=== PATIENT | male | born 1990 | race Two or more races ===

== ENCOUNTER 2018-04-03 16:48 | Inpatient (IN) | payer OTHER ==
[2018-04-03 17:09] VITALS: BMI 39.4
--- NOTE | 2018-04-03 19:34 | HP ---
COWS - Scale Resting Pulse: 1= [place] 81-100 Sweatin=Flushed/Facial Moisture Restless Observation: 1= Difficult to Sit Still Pupil Size: 2= Moderately Dilated (Pupils = 8 mm) Bone or Joint Aches: 2= Severe Diffuse Aches Runny Nose/ Eye Tearin= Nasal Congestion GI Upset > 30mins: 2= Nausea/Diarrhea (No diarrhea) Tremor Observation: 4= Gross Tremor/Twitching Yawning Observation: 0= None Anxiety or Irritability: 1=Feels Anxious/Irritable Goose Flesh Skin: 0=Smooth Skin COWS Score: 16 CIWA Score Nausea/Vomitin-Int. Nausea w/Dry Heave Muscle Tremors: 6 Anxiety: 1-Mildly Anxious Agitation: 1-Slight > Activity Paroxysmal Sweats: 4-Forehead w/Sweat Beads Orientation: 0-Oriented Tacttile Disturbances: 0-None Auditory Disturbances: 0-None Visual Disturbances: 2-Mild Sensitivity (Increased sensitivity to light) Headache: 3-Moderate CIWA-Ar Total Score: 21 - Admission Criteria [facility]ASAS Guidelines: Admission for Medically Managed Detox: Requires at least one of the followin. CIWA greater than 12 2. Seizures within the past 24 hours 3. Delirium tremens within the past 24 hours 4. Hallucinations within the past 24 hours 5. Acute intervention needed for co occurring medical disorder 6. Acute intervention needed for co occurring psychiatric disorder 7. Severe withdrawal that cannot be handled at a lower level of care (continued vomiting, continued diarrhea, abnormal vital signs) requiring intravenous medication and/or fluids 8. Patient presents the following: CIWA greater than 12 Admission Criteria Met: Admission criteria met Admission ROS [facility] Chief Complaint: Here with alcohol and heroin withdrawal. Allergies/Adverse Reactions: Allergies Allergy/AdvReac Type Severity Reaction Status Date / Time No Known Allergies Allergy Verified 04/03/18 18:05 History of Present Illness: Referred here for alcohol and heroin detox. Nicotine use began at age 10. Alcohol use began at age 13. Heroin use began at age 18. Intranasal and IVDU. Denies sharing needles or works. Reviewed overdose risks and prevention. Encouraged Narcan kit upon discharge. Hx: blackouts. Denies seizures and overdoses Reviewed patient's discharge papers from [facility]. Seen in [facility] ER on 04/03/18 for LOC and acute alcohol intoxication. [place] did a trauma work-up and gave IV hydration, a dose of Ativan, and Zofran. Patient was referred to [facility] for detox. Longest length of sobriety 6 months. By attending meeting and groups. Patient states has been told he has DM but not on any medications. Tx for chlamydia 10 years ago. SUPERVISORY AIDE reviewed. Exam Limitations: No Limitations - Ebola screening Have you traveled outside of the country in the last 21 days: No (N) Have you had contact with anyone from an Ebola affected area: No Have you been sick,other than usual withdrawal symptoms: No Do you have a fever: No - Review of Systems Constitutional: Diaphoresis, Changes in sleep (Difficulty falling and staying asleep. Used to take ambien 2 months ago.) EENT: reports: Blurred Vision, Throat Pain (Throat pain x 2 days. Thinks it's r/ t drinking) Respiratory: reports: No Symptoms reported Cardiac: reports: No Symptoms Reported GI: reports: Nausea, Indigestion (Acid refluxr/t alcohol use) : reports: No Symptoms Reported Musculoskeletal: reports: Back Pain (r/t withdrawal), Joint Pain (r/t withdrawal ), Muscle Pain (r/t withdrawal) Integumentary: reports: No Symptoms Reported Neuro: reports: Headache (moderate to severe), Tremors Endocrine: reports: No Symptoms Reported Hematology: reports: No Symptoms Reported Psychiatric: reports: Judgement Intact, Orientated x3, Agitated, Anxious, Depressed (Feels depressed and sad. Has not seen a mental health provider.) Patient History - Patient Medical History Hx Anemia: No Hx Asthma: No Hx Chronic Obstructive Pulmonary Disease (COPD): No Hx Cancer: No Hx Cardiac Disorders: No Hx Congestive Heart Failure: No Hx Hypertension: No Hx Hypercholesterolemia: No Hx Pacemaker: No HX Cerebrovascular Accident: No Hx Seizures: No Hx Dementia: No Hx Diabetes: No Hx Gastrointestinal Disorders: No Hx Liver Disease: No Hx Genitourinary Disorders: No Hx Sexually Transmitted Disorders: Yes (Tx for chlamydia 10 years ago.) Hx Renal Disease (ESRD): No Hx Thyroid Disease: No Hx Human Immunodeficiency Virus (HIV): No (negative) Hx Hepatitis C: No Hx Depression: No Hx Suicide Attempt: No Hx Bipolar Disorder: No Hx Schizophrenia: No - Patient Surgical History Past Surgical History: No Hx Neurologic Surgery: No Hx Cataract Extraction: No Hx Cardiac Surgery: No Hx Lung Surgery: No Hx Breast Surgery: No Hx Breast Biopsy: No Hx Abdominal Surgery: No Hx Appendectomy: No Hx Cholecystectomy: No Hx Genitourinary Surgery: No Hx Section: No Hx Orthopedic Surgery: No Anesthesia Reaction: No - PPD History Previous Implant?: Yes Documented Results: Negative w/proof Implanted On Prior [facility] Admission?: Yes Date: 05/15/15 PPD to be Administered?: Yes - Smoking Cessation Smoking history: Current every day smoker Have you smoked in the past 12 months: Yes Aproximately how many cigarettes per day: 4 Hx Chewing Tobacco Use: No Initiated information on smoking cessation: Yes 'Breaking Loose' booklet given: 04/03/18 - Substance & Tx. History Hx Alcohol Use: Yes Hx Substance Use: Yes Substance Use Type: Alcohol, Heroin Hx Substance Use Treatment: Yes (detox) - Substances Abused Alcohol Route: Oral Frequency: Daily Amount used: LIQUOR- 1 LITER , BEER- 2 SIX PACK Age of first use: 13 Date of Last Use: 04/02/18 Heroin Route: Injection Frequency: Daily Amount used: 6 BAGS Age of first use: 18 Date of Last Use: 04/02/18 Family Disease History - Family Disease History Family Disease History: Diabetes: Mother, Heart Disease: Father, Mother Admission Physical Exam S - Vital Signs Vital Signs: Vital Signs - 24 hr 04/03/18 17:08 Temperature 97.7 F Pulse Rate 97 H Respiratory 18 Rate Blood Pressure 150/86 - Physical General Appearance: Yes: Nourished, Appropriately Dressed, Moderate Distress, Obese, Tremorous, Sweating, Anxious HEENTM: Yes: EOMI, Hearing grossly Normal, Normal ENT Inspection, JOSEPH (Pupils = 8 mm), Pharynx Normal Respiratory: Yes: Lungs Clear, Normal Breath Sounds Neck: Yes: No masses,lesions,Nodules, Supple Breast: Yes: Breast Exam Deferred Cardiology: Yes: Regular Rhythm, S1, S2, Tachycardia (Current hear rate 100) Abdominal: Yes: Non Tender, Soft, Increased Bowel Sounds, Protuberent ( Increased abdominal adiposity) Genitourinary: Yes: Within Normal Limits Back: Yes: Normal Inspection Musculoskeletal: Yes: full range of Motion, Gait Steady Extremities: Yes: Normal Capillary Refill, Normal Range of Motion, Non-Tender, Tremors (Tremors of hands arms at rest and increases when arms elevated) Neurological: Yes: parole board member II-XII NML intact, Fully Oriented, Alert, Motor Strength 5/5, Normal Mood/Affect Integumentary: Yes: Normal Color, Dry, Warm, Track Ibarra (Track ibarra at antecubital areas w/o increased erythema or warmth.) - Diagnostic (1) Alcohol dependence with uncomplicated withdrawal Status: Acute (2) Nicotine dependence Status: Chronic Qualifiers: Nicotine product type: cigarettes Substance use status: uncomplicated Qualified Code(s): F17.210 - Nicotine dependence, cigarettes, uncomplicated (3) Opioid dependence with withdrawal Status: Acute (4) Obesity (BMI 30-39.9) Status: Chronic Cleared for Admission [facility] - Detox or Rehab [facility] Level of Care: Medically Managed Detox Regimen/Protocol: Methadone/Librium S Breath Alcohol Content Breath Alcohol Content: 0 Urine Drug Screen - Results Drug Screen Negative: No Urine Drug Screen Results: OPI-Opiates, BZO-Benzodiazepines
[2018-04-03] MEDS ORDERED: NICOTINE POLACRILEX 2 MG GUM BUC PRN (20:05)
[2018-04-03] MEDS ORDERED: diazePAM 5 MG TABLET PO PRN (20:05)
[2018-04-03] MEDS ORDERED: diazePAM 5 MG TABLET PO ONE (20:05)
[2018-04-03] MEDS ORDERED: METHADONE HCL 10 MG TABLET (FOR DETOX USE ONLY) PO ONE ×2 (20:05→23:00)
[2018-04-03] MEDS ORDERED: MAGNESIUM HYDROX 2400MG/30ML ORAL SUSPENSION 30 ML CUP PO PRN (20:05)
[2018-04-03] MEDS ORDERED: LOPERAMIDE HCL 2 MG CAPSULE PO PRN (20:05)
[2018-04-03] MEDS ORDERED: MAGNESIUM CITRATE 300 ML BOTTLE PO PRN (20:05)
[2018-04-03] MEDS ORDERED: MENTHOL/PHENOL 1 EACH UD MM PRN (20:05)
[2018-04-03] MEDS ORDERED: ACETAMINOPHEN 325 MG TABLET (FP) PO PRN (20:05)
[2018-04-03] MEDS ORDERED: chlordiazePOXIDE HCL 25 MG CAPSULE PO PRN (20:54)
[2018-04-03] MEDS ORDERED: diazePAM 5 MG TABLET PO SCH (22:00)
[2018-04-03] MEDS: chlordiazePOXIDE HCL 25 MG CAPSULE PO SCH (22:13)
[2018-04-03] MEDS: THIAMINE HCL 100 MG TABLET (FP) PO SCH (22:14)
[2018-04-03] MEDS: MELATONIN 5 MG TABLETS PO PRN (23:42)
[2018-04-04] MEDS: chlordiazePOXIDE HCL 25 MG CAPSULE PO SCH ×4 (05:22→22:07)
[2018-04-04] MEDS: MAG HYDROX/AL HYDROX/SIMETH 30 ML UNIT-DOSE CUP PO PRN ×3 (05:23→22:09)
[2018-04-04] MEDS ORDERED: METHADONE HCL 10 MG TABLET (FOR DETOX USE ONLY) PO SCH (10:00)
[2018-04-04] MEDS: PRENATAL VITAMINS W/ FOLIC ACID TABLET (FP) PO SCH (10:27)
[2018-04-04] MEDS: PANTOPRAZOLE 40 MG TABLET (FP) PO SCH (10:27)
[2018-04-04] MEDS: NICOTINE 7 MG/24 HOURS TOPICAL PATCH TD SCH (10:28)
[2018-04-04 10:31] LABS: URINE APPEARANCE CLEAR; URINE BILIRUBIN NEGATIVE (<2.0 mg/dL); URINE COLOR YELLOW; URINE GLUCOSE (UA) NEGATIVE (NEGATIVE); URINE KETONE NEGATIVE (NEGATIVE); URINE LEUK ESTERASE NEGATIVE (NEGATIVE); URINE NITRITE NEGATIVE (NEGATIVE); URINE PROTEIN 1+ (NEGATIVE)
[2018-04-04 10:38] LABS: URINE MUCUS RARE
[2018-04-04 10:38] LABS: ALBUMIN 3.3 g/dl (3.4-5.0); ALK PHOS 101 U/L (45-117); ANION GAP 9 MMOL/L (8-16); BILIRUBIN,TOTAL 1.3 mg/dL (0.2-1); BLOOD UREA NITROGEN 6 mg/dL (7-18); CHLORIDE 95 mmol/L (98-107); CO2 31 mmol/L (21-32); CREATININE 0.7 mg/dL (0.55-1.3); GLUCOSE,RANDOM 132 mg/dL (74-106); POTASSIUM 3.2 mmol/L (3.5-5.1); SGOT/AST 46 U/L (15-37); SGPT/ALT 50 U/L (13-61); SODIUM 135 mmol/L (136-145); TOT PROT 6.9 g/dl (6.4-8.2)
[2018-04-04 10:53] LABS: HEMATOCRIT 37.9 % (35.4-49); HEMOGLOBIN 13.8 GM/dL (11.7-16.9); MCH 30.2 pg (25.7-33.7); MCHC 36.5 g/dl (32.0-35.9); MEAN CELL VOLUME 82.8 fl (80-96); PLATELET COUNT 167 K/MM3 (134-434); RBC 4.59 M/mm3 (4.00-5.60); RDW 13.4 % (11.9-15.9); WHITE BLOOD COUNT 5.7 K/mm3 (4.0-10.0)
--- NOTE | 2018-04-04 11:23 | PN ---
[facility] CIWA - CIWA Score Nausea/Vomitin-Mild Nausea/No Vomiting Muscle Tremors: 3 Anxiety: 4-Mod. Anxious/Guarded Agitation: 3 Paroxysmal Sweats: 1-Minimal Palms Moist Orientation: 1-Uncertain about Date Tacttile Disturbances: 0-None Auditory Disturbances: 0-None Visual Disturbances: 0-None Headache: 1-Very Mild CIWA-Ar Total Score: 14 S COWS - Scale Resting Pulse: 0= SD 80 or Below Sweatin= Chills/Flushing Restless Observation: 1= Difficult to Sit Still Pupil Size: 0= Normal to Room Light Bone or Joint Aches: 2= Severe Diffuse Aches Runny Nose/ Eye Tearin= Nasal Congestion GI Upset > 30mins: 2= Nausea/Diarrhea Tremor Observation of Outstretched Hands: 1= Tremor [place], Not Seen Yawning Observation: 2= >3x During Session Anxiety or Irritability: 2=Irritable/Anxious Goose Flesh Skin: 0=Smooth Skin COWS Score: 12 [facility] Progress Note (SOAP) Subjective: body aches tremor muscle cramp sweat trouble sleep at night Objective: 04/04/18 11:31 Vital Signs Temperature 97.2 F L 04/04/18 09:31 Pulse Rate 70 04/04/18 09:31 Respiratory Rate 18 04/04/18 09:31 Blood Pressure 137/89 04/04/18 09:31 O2 Sat by Pulse Oximetry (%) Laboratory Last Values WBC 5.7 K/mm3 (4.0-10.0) 04/04/18 07:30 RBC 4.59 M/mm3 (4.00-5.60) 04/04/18 07:30 Hgb 13.8 GM/dL (11.7-16.9) 04/04/18 07:30 Hct 37.9 % (35.4-49) 04/04/18 07:30 MCV 82.8 fl (80-96) 04/04/18 07:30 MCH 30.2 pg (25.7-33.7) 04/04/18 07:30 MCHC 36.5 g/dl (32.0-35.9) H 04/04/18 07:30 RDW 13.4 % (11.9-15.9) 04/04/18 07:30 Plt Count 167 K/MM3 (134-434) D 04/04/18 07:30 MPV 9.0 fl (7.5-11.1) D 04/04/18 07:30 Sodium 135 mmol/L (136-145) L 04/04/18 07:30 Potassium 3.2 mmol/L (3.5-5.1) L 04/04/18 07:30 Chloride 95 mmol/L (98-107) L 04/04/18 07:30 Carbon Dioxide 31 mmol/L (21-32) 04/04/18 07:30 Anion Gap 9 MMOL/L (8-16) 04/04/18 07:30 BUN 6 mg/dL (7-18) L 04/04/18 07:30 Creatinine 0.7 mg/dL (0.55-1.3) 04/04/18 07:30 Creat Clearance w eGFR > 60 (>60) 04/04/18 07:30 POC Glucometer 142 UNITS (80-120) 04/04/18 05:21 Random Glucose 132 mg/dL (74-106) H 04/04/18 07:30 Calcium 8.0 mg/dL (8.5-10.1) L 04/04/18 07:30 Total Bilirubin 1.3 mg/dL (0.2-1) H 04/04/18 07:30 AST 46 U/L (15-37) H 04/04/18 07:30 ALT 50 U/L (13-61) 04/04/18 07:30 Alkaline Phosphatase 101 U/L (45-117) 04/04/18 07:30 Total Protein 6.9 g/dl (6.4-8.2) 04/04/18 07:30 Albumin 3.3 g/dl (3.4-5.0) L 04/04/18 07:30 Urine Color Yellow 04/03/18 23:18 Urine Appearance Clear 04/03/18 23:18 Urine pH 8.0 (5.0-8.0) D 04/03/18 23:18 Ur Specific [place] 1.018 (1.010-1.035) 04/03/18 23:18 Urine Protein 1+ (NEGATIVE) H 04/03/18 23:18 Urine Glucose (UA) Negative (NEGATIVE) 04/03/18 23:18 Urine Ketones Negative (NEGATIVE) 04/03/18 23:18 Urine Blood 1+ (NEGATIVE) H 04/03/18 23:18 Urine Nitrite Negative (NEGATIVE) 04/03/18 23:18 Urine Bilirubin Negative (<2.0 mg/dL) 04/03/18 23:18 Urine Urobilinogen 2.0 mg/dL (0.2-1.0) 04/03/18 23:18 Ur Leukocyte Esterase Negative (NEGATIVE) 04/03/18 23:18 Urine WBC (Auto) 1 /hpf (3-5) 04/03/18 23:18 Urine RBC (Auto) 4 /hpf (0-3) 04/03/18 23:18 Urine Mucus Rare 04/03/18 23:18 lab noted low K+ Assessment: 04/04/18 11:33 withdrawal sx low Potassium Plan: continue detox Potassium supplement repeat K+
[2018-04-04] MEDS: POTASSIUM CHLORIDE TABS 20 MEQ TABLET.ER (FP) PO SCH ×2 (15:03→22:07)
[2018-04-04] MEDS: LISINOPRIL 5 MG TABLET (FP) PO SCH (15:04)
[2018-04-04] MEDS: INSULIN SLIDING SCALE (NOVOLOG) 1 VIAL SQ SCH (16:52)
[2018-04-04] MEDS: THIAMINE HCL 100 MG TABLET (FP) PO SCH (22:07)
[2018-04-04] MEDS: MELATONIN 5 MG TABLETS PO PRN (22:08)
[2018-04-05] MEDS: INSULIN SLIDING SCALE (NOVOLOG) 1 VIAL SQ SCH ×2 (06:00→17:28)
[2018-04-05] MEDS: chlordiazePOXIDE HCL 25 MG CAPSULE PO SCH ×3 (06:00→17:30)
[2018-04-05] MEDS: MAG HYDROX/AL HYDROX/SIMETH 30 ML UNIT-DOSE CUP PO PRN (06:01)
[2018-04-05] MEDS ORDERED: diazePAM 5 MG TABLET PO SCH (10:00)
[2018-04-05] MEDS: POTASSIUM CHLORIDE TABS 20 MEQ TABLET.ER (FP) PO SCH ×2 (10:11→22:10)
[2018-04-05] MEDS: PRENATAL VITAMINS W/ FOLIC ACID TABLET (FP) PO SCH (10:11)
[2018-04-05] MEDS: METHADONE HCL 5 MG TABLET (FOR DETOX USE ONLY) PO SCH (10:11)
[2018-04-05] MEDS: LISINOPRIL 5 MG TABLET (FP) PO SCH (10:11)
[2018-04-05] MEDS: PANTOPRAZOLE 40 MG TABLET (FP) PO SCH (10:11)
[2018-04-05] MEDS: NICOTINE 7 MG/24 HOURS TOPICAL PATCH TD SCH (10:12)
--- NOTE | 2018-04-05 10:34 | PN ---
[facility] COWS - Scale Resting Pulse: 1= [place] 81-100 Sweatin=Flushed/Facial Moisture Restless Observation: 0= Sits Still Pupil Size: 0= Normal to Room Light Bone or Joint Aches: 1= Mild Discomfort Runny Nose/ Eye Tearin= Nasal Congestion GI Upset > 30mins: 0= None Tremor Observation of Outstretched Hands: 2= Slight Tremor Visible Yawning Observation: 2= >3x During Session Anxiety or Irritability: 2=Irritable/Anxious Goose Flesh Skin: 0=Smooth Skin COWS Score: 11 S Progress Note (SOAP) Subjective: body aches sweats interrupted sleep mild shakes Objective: 04/05/18 10:33 Vital Signs Temperature 97.7 F 04/05/18 09:30 Pulse Rate 82 04/05/18 09:30 Respiratory Rate 18 04/05/18 09:30 Blood Pressure 129/65 04/05/18 09:30 O2 Sat by Pulse Oximetry (%) Laboratory Tests 04/03/18 04/04/18 04/04/18 23:18 05:21 07:30 WBC 5.7 RBC 4.59 Hgb 13.8 Hct 37.9 MCV 82.8 MCH 30.2 MCHC 36.5 H RDW 13.4 Plt Count 167 D MPV 9.0 D Sodium Potassium Chloride Carbon Dioxide Anion Gap BUN Creatinine Creat Clearance w eGFR POC Glucometer 142 Random Glucose Calcium Total Bilirubin AST ALT Alkaline Phosphatase Total Protein Albumin Urine Color Yellow Urine Appearance Clear Urine pH 8.0 D Ur Specific [place] 1.018 Urine Protein 1+ H Urine Glucose (UA) Negative Urine Ketones Negative Urine Blood 1+ H Urine Nitrite Negative Urine Bilirubin Negative Urine Urobilinogen 2.0 Ur Leukocyte Esterase Negative Urine WBC (Auto) 1 Urine RBC (Auto) 4 Urine Mucus Rare RPR Titer 04/04/18 04/04/18 04/04/18 07:30 07:30 16:48 WBC RBC Hgb Hct MCV MCH MCHC RDW Plt Count MPV Sodium 135 L Potassium 3.2 L Chloride 95 L Carbon Dioxide 31 Anion Gap 9 BUN 6 L Creatinine 0.7 Creat Clearance w eGFR > 60 POC Glucometer 190 Random Glucose 132 H Calcium 8.0 L Total Bilirubin 1.3 H AST 46 H ALT 50 Alkaline Phosphatase 101 Total Protein 6.9 Albumin 3.3 L Urine Color Urine Appearance Urine pH Ur Specific [place] Urine Protein Urine Glucose (UA) Urine Ketones Urine Blood Urine Nitrite Urine Bilirubin Urine Urobilinogen Ur Leukocyte Esterase Urine WBC (Auto) Urine RBC (Auto) Urine Mucus RPR Titer Nonreactive 04/05/18 05:59 WBC RBC Hgb Hct MCV MCH MCHC RDW Plt Count MPV Sodium Potassium Chloride Carbon Dioxide Anion Gap BUN Creatinine Creat Clearance w eGFR POC Glucometer 134 Random Glucose Calcium Total Bilirubin AST ALT Alkaline Phosphatase Total Protein Albumin Urine Color Urine Appearance Urine pH Ur Specific [place] Urine Protein Urine Glucose (UA) Urine Ketones Urine Blood Urine Nitrite Urine Bilirubin Urine Urobilinogen Ur Leukocyte Esterase Urine WBC (Auto) Urine RBC (Auto) Urine Mucus RPR Titer aaox3 ambulating no acute distress Assessment: 04/05/18 10:33 withdrawal sx Plan: continue detox increase fluids cbc ordered
--- NOTE | 2018-04-05 12:22 | EKG ---
Test Reason : Blood Pressure : / mmHG Vent. Rate : 092 BPM Atrial Rate : 092 BPM P-R Int : 164 ms QRS Dur : 102 ms QT Int : 386 ms P-R-T Axes : 015 026 047 degrees QTc Int : 477 ms SINUS RHYTHM WITH OCCASIONAL PREMATURE VENTRICULAR COMPLEXES OTHERWISE NORMAL ECG NO PREVIOUS ECGS AVAILABLE Confirmed by TONI WOOD MD ([id number]) on 04/05/2018 12:22:11 PM Referred By: Confirmed By:TONI WOOD MD
[2018-04-05] MEDS: ONDANSETRON *ODT* 4 MG TABLET SL PRN (17:30)
[2018-04-05] MEDS: IBUPROFEN 400 MG TABLET (FP) PO PRN (17:34)
[2018-04-05] MEDS: chlordiazePOXIDE 5 MG CAPSULE PO SCH (22:10)
[2018-04-05] MEDS: THIAMINE HCL 100 MG TABLET (FP) PO SCH (22:10)
[2018-04-05] MEDS: MELATONIN 5 MG TABLETS PO PRN (22:11)
[2018-04-06] MEDS: chlordiazePOXIDE 5 MG CAPSULE PO SCH ×3 (06:03→17:17)
[2018-04-06] MEDS: INSULIN SLIDING SCALE (NOVOLOG) 1 VIAL SQ SCH ×2 (06:04→17:22)
[2018-04-06] MEDS: ONDANSETRON *ODT* 4 MG TABLET SL PRN (06:06)
[2018-04-06] MEDS: PRENATAL VITAMINS W/ FOLIC ACID TABLET (FP) PO SCH (10:13)
[2018-04-06] MEDS: METHADONE HCL 5 MG TABLET (FOR DETOX USE ONLY) PO SCH (10:13)
[2018-04-06] MEDS: LISINOPRIL 5 MG TABLET (FP) PO SCH (10:13)
[2018-04-06] MEDS: PANTOPRAZOLE 40 MG TABLET (FP) PO SCH (10:14)
[2018-04-06] MEDS: POTASSIUM CHLORIDE TABS 20 MEQ TABLET.ER (FP) PO SCH ×2 (10:14→22:13)
[2018-04-06] MEDS: NICOTINE 7 MG/24 HOURS TOPICAL PATCH TD SCH (10:16)
--- NOTE | 2018-04-06 11:29 | PN ---
[facility] Progress Note Note: PATIENT CONTINUES WITH DETOX REGIMEN FOR OPIOD AND ETOH WITHDRAWAL. PATIENT C/O SWEATING, NAUSEA, BODY ACHES AND INTERRUPTED SLEEP. Vital Signs Temperature 98.7 F 04/06/18 09:37 Pulse Rate 70 04/06/18 09:37 Respiratory Rate 18 04/06/18 09:37 Blood Pressure 120/76 04/06/18 09:37 O2 Sat by Pulse Oximetry (%) Vital Signs Temperature 98.7 F 04/06/18 09:37 Pulse Rate 70 04/06/18 09:37 Respiratory Rate 18 04/06/18 09:37 Blood Pressure 120/76 04/06/18 09:37 O2 Sat by Pulse Oximetry (%) Laboratory Tests 04/03/18 04/04/18 04/04/18 23:18 05:21 07:30 WBC 5.7 RBC 4.59 Hgb 13.8 Hct 37.9 MCV 82.8 MCH 30.2 MCHC 36.5 H RDW 13.4 Plt Count 167 D MPV 9.0 D Sodium Potassium Chloride Carbon Dioxide Anion Gap BUN Creatinine Creat Clearance w eGFR POC Glucometer 142 Random Glucose Calcium Total Bilirubin AST ALT Alkaline Phosphatase Total Protein Albumin Urine Color Yellow Urine Appearance Clear Urine pH 8.0 D Ur Specific [place] 1.018 Urine Protein 1+ H Urine Glucose (UA) Negative Urine Ketones Negative Urine Blood 1+ H Urine Nitrite Negative Urine Bilirubin Negative Urine Urobilinogen 2.0 Ur Leukocyte Esterase Negative Urine WBC (Auto) 1 Urine RBC (Auto) 4 Urine Mucus Rare RPR Titer 04/04/18 04/04/18 04/04/18 07:30 07:30 16:48 WBC RBC Hgb Hct MCV MCH MCHC RDW Plt Count MPV Sodium 135 L Potassium 3.2 L Chloride 95 L Carbon Dioxide 31 Anion Gap 9 BUN 6 L Creatinine 0.7 Creat Clearance w eGFR > 60 POC Glucometer 190 Random Glucose 132 H Calcium 8.0 L Total Bilirubin 1.3 H AST 46 H ALT 50 Alkaline Phosphatase 101 Total Protein 6.9 Albumin 3.3 L Urine Color Urine Appearance Urine pH Ur Specific [place] Urine Protein Urine Glucose (UA) Urine Ketones Urine Blood Urine Nitrite Urine Bilirubin Urine Urobilinogen Ur Leukocyte Esterase Urine WBC (Auto) Urine RBC (Auto) Urine Mucus RPR Titer Nonreactive 04/05/18 04/05/18 04/06/18 05:59 16:36 06:02 WBC RBC Hgb Hct MCV MCH MCHC RDW Plt Count MPV Sodium Potassium Chloride Carbon Dioxide Anion Gap BUN Creatinine Creat Clearance w eGFR POC Glucometer 134 110 114 Random Glucose Calcium Total Bilirubin AST ALT Alkaline Phosphatase Total Protein Albumin Urine Color Urine Appearance Urine pH Ur Specific [place] Urine Protein Urine Glucose (UA) Urine Ketones Urine Blood Urine Nitrite Urine Bilirubin Urine Urobilinogen Ur Leukocyte Esterase Urine WBC (Auto) Urine RBC (Auto) Urine Mucus RPR Titer PE: ALERT AND ORIENTED X 3 SKIN + SWEAT ON TRUNK OF BODY/CHEST AND FACE EXT FULL ROM, NO VISIBLE TREMORS RESTLESS, CHANGING BED POSITION FREQUENTLY AMB AD CARLOS \ A/P WITHDRAWAL SX CONTINUE DETOX ENCOURAGE FLUIDS FLEXERIL FOR BACK PAIN LABS PENDING CONTINUE TO MONITOR
[2018-04-06 11:30] LABS: ALBUMIN 3.3 g/dl (3.4-5.0); ALK PHOS 125 U/L (45-117); ANION GAP 7 MMOL/L (8-16); BILIRUBIN,TOTAL 0.7 mg/dL (0.2-1); BLOOD UREA NITROGEN 11 mg/dL (7-18); CALCIUM 8.3 mg/dL (8.5-10.1); CHLORIDE 98 mmol/L (98-107); CO2 30 mmol/L (21-32); CREATININE 0.8 mg/dL (0.55-1.3); GLUCOSE,RANDOM 117 mg/dL (74-106); POTASSIUM 3.7 mmol/L (3.5-5.1); SGOT/AST 67 U/L (15-37); SGPT/ALT 79 U/L (13-61); SODIUM 136 mmol/L (136-145); TOT PROT 6.7 g/dl (6.4-8.2)
[2018-04-06] MEDS: CYCLOBENZAPRINE HCL 10 MG TABLET (FP) PO SCH ×2 (13:35→22:13)
[2018-04-06] MEDS: THIAMINE HCL 100 MG TABLET (FP) PO SCH (22:13)
[2018-04-06] MEDS: chlordiazePOXIDE HCL 10 MG CAPSULE PO SCH (22:13)
[2018-04-07] MEDS: chlordiazePOXIDE HCL 10 MG CAPSULE PO SCH ×3 (05:21→18:13)
[2018-04-07] MEDS: CYCLOBENZAPRINE HCL 10 MG TABLET (FP) PO SCH ×4 (05:21→22:16)
[2018-04-07] MEDS: ONDANSETRON *ODT* 4 MG TABLET SL PRN (05:25)
[2018-04-07] MEDS: INSULIN SLIDING SCALE (NOVOLOG) 1 VIAL SQ SCH ×2 (06:01→17:43)
[2018-04-07] MEDS ORDERED: METHADONE HCL 10 MG TABLET (FOR DETOX USE ONLY) PO SCH (10:00)
[2018-04-07] MEDS ORDERED: diazePAM 5 MG TABLET PO SCH (10:00)
[2018-04-07] MEDS: POTASSIUM CHLORIDE TABS 20 MEQ TABLET.ER (FP) PO SCH ×2 (10:18→22:16)
[2018-04-07] MEDS: PANTOPRAZOLE 40 MG TABLET (FP) PO SCH (10:18)
[2018-04-07] MEDS: LISINOPRIL 5 MG TABLET (FP) PO SCH (10:18)
[2018-04-07] MEDS: NICOTINE 7 MG/24 HOURS TOPICAL PATCH TD SCH (10:18)
[2018-04-07] MEDS: PRENATAL VITAMINS W/ FOLIC ACID TABLET (FP) PO SCH (10:18)
[2018-04-07] MEDS: IBUPROFEN 400 MG TABLET (FP) PO PRN (10:20)
--- NOTE | 2018-04-07 15:57 | PN ---
[facility] Progress Note (SOAP) Subjective: Sweating, Body Aches, H/A, Interrupted Sleep, Diarrhea. Objective: PATIENT A & O X 3, OBSERVED AMBULATING ON UNIT. IN NO ACUTE DISTRESS. 04/07/18 15:53 Vital Signs Temperature 97.7 F 04/07/18 09:06 Pulse Rate 78 04/07/18 09:06 Respiratory Rate 20 04/07/18 09:06 Blood Pressure 121/80 04/07/18 09:06 O2 Sat by Pulse Oximetry (%) Laboratory Tests 04/03/18 04/04/18 04/04/18 23:18 05:21 07:30 WBC 5.7 RBC 4.59 Hgb 13.8 Hct 37.9 MCV 82.8 MCH 30.2 MCHC 36.5 H RDW 13.4 Plt Count 167 D MPV 9.0 D Sodium Potassium Chloride Carbon Dioxide Anion Gap BUN Creatinine Creat Clearance w eGFR POC Glucometer 142 Random Glucose Calcium Total Bilirubin AST ALT Alkaline Phosphatase Total Protein Albumin Urine Color Yellow Urine Appearance Clear Urine pH 8.0 D Ur Specific [place] 1.018 Urine Protein 1+ H Urine Glucose (UA) Negative Urine Ketones Negative Urine Blood 1+ H Urine Nitrite Negative Urine Bilirubin Negative Urine Urobilinogen 2.0 Ur Leukocyte Esterase Negative Urine WBC (Auto) 1 Urine RBC (Auto) 4 Urine Mucus Rare RPR Titer 04/04/18 04/04/18 04/04/18 07:30 07:30 16:48 WBC RBC Hgb Hct MCV MCH MCHC RDW Plt Count MPV Sodium 135 L Potassium 3.2 L Chloride 95 L Carbon Dioxide 31 Anion Gap 9 BUN 6 L Creatinine 0.7 Creat Clearance w eGFR > 60 POC Glucometer 190 Random Glucose 132 H Calcium 8.0 L Total Bilirubin 1.3 H AST 46 H ALT 50 Alkaline Phosphatase 101 Total Protein 6.9 Albumin 3.3 L Urine Color Urine Appearance Urine pH Ur Specific [place] Urine Protein Urine Glucose (UA) Urine Ketones Urine Blood Urine Nitrite Urine Bilirubin Urine Urobilinogen Ur Leukocyte Esterase Urine WBC (Auto) Urine RBC (Auto) Urine Mucus RPR Titer Nonreactive 04/05/18 04/05/18 04/06/18 05:59 16:36 06:02 WBC RBC Hgb Hct MCV MCH MCHC RDW Plt Count MPV Sodium Potassium Chloride Carbon Dioxide Anion Gap BUN Creatinine Creat Clearance w eGFR POC Glucometer 134 110 114 Random Glucose Calcium Total Bilirubin AST ALT Alkaline Phosphatase Total Protein Albumin Urine Color Urine Appearance Urine pH Ur Specific [place] Urine Protein Urine Glucose (UA) Urine Ketones Urine Blood Urine Nitrite Urine Bilirubin Urine Urobilinogen Ur Leukocyte Esterase Urine WBC (Auto) Urine RBC (Auto) Urine Mucus RPR Titer 04/06/18 04/06/18 04/07/18 07:30 16:36 05:21 WBC RBC Hgb Hct MCV MCH MCHC RDW Plt Count MPV Sodium 136 Potassium 3.7 Chloride 98 Carbon Dioxide 30 Anion Gap 7 L BUN 11 Creatinine 0.8 Creat Clearance w eGFR > 60 POC Glucometer 142 120 Random Glucose 117 H Calcium 8.3 L Total Bilirubin 0.7 AST 67 H ALT 79 H Alkaline Phosphatase 125 H Total Protein 6.7 Albumin 3.3 L Urine Color Urine Appearance Urine pH Ur Specific [place] Urine Protein Urine Glucose (UA) Urine Ketones Urine Blood Urine Nitrite Urine Bilirubin Urine Urobilinogen Ur Leukocyte Esterase Urine WBC (Auto) Urine RBC (Auto) Urine Mucus RPR Titer LABS NOTED. Assessment: 04/07/18 15:54 WITHDRAWAL SYMPTOMS. Plan: CONTINUE DETOX. INCREASE DAILY PO FLUID INTAKE. PRN IMMODIUM FOR DIARRHEA.
[2018-04-07] MEDS: THIAMINE HCL 100 MG TABLET (FP) PO SCH (22:16)
[2018-04-07] MEDS: MELATONIN 5 MG TABLETS PO PRN (22:17)
[2018-04-08] MEDS: CYCLOBENZAPRINE HCL 10 MG TABLET (FP) PO SCH (05:57)
[2018-04-08] MEDS ORDERED: METHADONE HCL 5 MG TABLET (FOR DETOX USE ONLY) PO SCH (06:00)
[2018-04-08] MEDS: INSULIN SLIDING SCALE (NOVOLOG) 1 VIAL SQ SCH (06:06)
[2018-04-08 09:28] VITALS: BP 154/76; PULSE 90; TEMP 98.1
[2018-04-08] MEDS: PANTOPRAZOLE 40 MG TABLET (FP) PO SCH (10:28)
[2018-04-08] MEDS: LISINOPRIL 5 MG TABLET (FP) PO SCH (10:28)
[2018-04-08] MEDS: PRENATAL VITAMINS W/ FOLIC ACID TABLET (FP) PO SCH (10:28)
[2018-04-08] MEDS: POTASSIUM CHLORIDE TABS 20 MEQ TABLET.ER (FP) PO SCH (10:28)
[2018-04-08] MEDS: NICOTINE 7 MG/24 HOURS TOPICAL PATCH TD SCH (10:28)
--- NOTE | 2018-04-08 17:33 | DS ---
[facility] Detox Discharge Summary Admission Date: 04/03/18 Discharge Date: 04/08/18 - History Present History: Alcohol Dependence, Opioid Dependence Additional Comments: PATIENT SCHEDULED FOR DISCHARGE FROM DETOX UNIT TO DAY. PATIENT SCHEDULED TO GO TO [facility] ([place], [place] FOR AFTERCARE. PATIENT WAS DISCHARGED FROM DETOX UNIT IN STABLE MEDICAL CONDITION. Pertinent Past History: DM, Obesity, Nicotine Dependence. - Physical Exam Results Vital Signs: Vital Signs Temperature 98.1 F 04/08/18 09:27 Pulse Rate 90 04/08/18 09:27 Respiratory Rate 18 04/08/18 09:27 Blood Pressure 154/76 04/08/18 09:27 O2 Sat by Pulse Oximetry (%) Pertinent Admission Physical Exam Findings: WITHDRAWAL SYMPTOMS. Laboratory Tests 04/03/18 04/04/18 04/04/18 23:18 05:21 07:30 WBC 5.7 RBC 4.59 Hgb 13.8 Hct 37.9 MCV 82.8 MCH 30.2 MCHC 36.5 H RDW 13.4 Plt Count 167 D MPV 9.0 D Sodium Potassium Chloride Carbon Dioxide Anion Gap BUN Creatinine Creat Clearance w eGFR POC Glucometer 142 Random Glucose Calcium Total Bilirubin AST ALT Alkaline Phosphatase Total Protein Albumin Urine Color Yellow Urine Appearance Clear Urine pH 8.0 D Ur Specific [place] 1.018 Urine Protein 1+ H Urine Glucose (UA) Negative Urine Ketones Negative Urine Blood 1+ H Urine Nitrite Negative Urine Bilirubin Negative Urine Urobilinogen 2.0 Ur Leukocyte Esterase Negative Urine WBC (Auto) 1 Urine RBC (Auto) 4 Urine Mucus Rare RPR Titer 04/04/18 04/04/18 04/04/18 07:30 07:30 16:48 WBC RBC Hgb Hct MCV MCH MCHC RDW Plt Count MPV Sodium 135 L Potassium 3.2 L Chloride 95 L Carbon Dioxide 31 Anion Gap 9 BUN 6 L Creatinine 0.7 Creat Clearance w eGFR > 60 POC Glucometer 190 Random Glucose 132 H Calcium 8.0 L Total Bilirubin 1.3 H AST 46 H ALT 50 Alkaline Phosphatase 101 Total Protein 6.9 Albumin 3.3 L Urine Color Urine Appearance Urine pH Ur Specific D[place] Urine Protein Urine Glucose (UA) Urine Ketones Urine Blood Urine Nitrite Urine Bilirubin Urine Urobilinogen Ur Leukocyte Esterase Urine WBC (Auto) Urine RBC (Auto) Urine Mucus RPR Titer Nonreactive 04/05/18 04/05/1804/06/19 05:59 16:36 06:02 WBC RBC Hgb Hct MCV MCH MCHC RDW Plt Count MPV Sodium Potassium Chloride Carbon Dioxide Anion Gap BUN Creatinine Creat Clearance w eGFR POC Glucometer 134 110 114 Random Glucose Calcium Total Bilirubin AST ALT Alkaline Phosphatase Total Protein Albumin Urine Color Urine Appearance Urine pH Ur Specific [place] Urine Protein Urine Glucose (UA) Urine Ketones Urine Blood Urine Nitrite Urine Bilirubin Urine Urobilinogen Ur Leukocyte Esterase Urine WBC (Auto) Urine RBC (Auto) Urine Mucus RPR Titer 04/06/18 04/06/18 04/07/18 07:30 16:36 05:21 WBC RBC Hgb Hct MCV MCH MCHC RDW Plt Count MPV Sodium 136 Potassium 3.7 Chloride 98 Carbon Dioxide 30 Anion Gap 7 L BUN 11 Creatinine 0.8 Creat Clearance w eGFR > 60 POC Glucometer 142 120 Random Glucose 117 H Calcium 8.3 L Total Bilirubin 0.7 AST 67 H ALT 79 H Alkaline Phosphatase 125 H Total Protein 6.7 Albumin 3.3 L Urine Color Urine Appearance Urine pH Ur Specific [place] Urine Protein Urine Glucose (UA) Urine Ketones Urine Blood Urine Nitrite Urine Bilirubin Urine Urobilinogen Ur Leukocyte Esterase Urine WBC (Auto) Urine RBC (Auto) Urine Mucus RPR Titer 04/07/18 04/08/18 16:24 05:58 WBC RBC Hgb Hct MCV MCH MCHC RDW Plt Count MPV Sodium Potassium Chloride Carbon Dioxide Anion Gap BUN Creatinine Creat Clearance w eGFR POC Glucometer 176 160 Random Glucose Calcium Total Bilirubin AST ALT Alkaline Phosphatase Total Protein Albumin Urine Color Urine Appearance Urine pH Ur Specific [place] Urine Protein Urine Glucose (UA) Urine Ketones Urine Blood Urine Nitrite Urine Bilirubin Urine Urobilinogen Ur Leukocyte Esterase Urine WBC (Auto) Urine RBC (Auto) Urine Mucus RPR Titer LABS NOTED. - Treatment Hospital Course: Detox Protocol Followed, Detoxed Safely, Responded well, Discharged Condition Good, Rehab Referral Accepted Patient has Accepted a Rehab Referral to: [facility] ([place], [place]) - Medication Discharge Medications: Ambulatory Orders Pantoprazole Sodium [Protonix -] 40 mg PO DAILY #30 tablet.ec 05/17/15 Insulin Sliding Scale [Novolog Vial Sliding Scale -] 0 units SQ BIDAC 04/04/18 - Diagnosis (1) Alcohol dependence with uncomplicated withdrawal Status: Acute (2) Opioid dependence with withdrawal Status: Acute (3) Nicotine dependence Status: Chronic Qualifiers: Nicotine product type: cigarettes Substance use status: uncomplicated Qualified Code(s): F17.210 - Nicotine dependence, cigarettes, uncomplicated (4) Obesity (BMI 30-39.9) Status: Chronic - AMA Did Patient Leave Against Medical Advice: No
--- NOTE | 2018-06-01 11:43 | EKG ---
Test Reason : Blood Pressure : / mmHG Vent. Rate : 075 BPM Atrial Rate : 075 BPM P-R Int : 146 ms QRS Dur : 084 ms QT Int : 392 ms P-R-T Axes : 080 079 068 degrees QTc Int : 437 ms NORMAL SINUS RHYTHM NORMAL ECG Confirmed by Ernesto Ventura MD ([id number]) on 06/01/2018 11:42:29 AM Referred By: Confirmed By:Ernesto Ventura MD
== END 2018-04-08 11:55 | disposition home or self-care (01) | DRG 773 ==
LOC: YASAS 16:48 → Y6N 20:01
PROC: HZ2ZZZZ Detoxification Services for Substance Abuse Treatment (ICD-10-PCS; principal; 2018-04-03)
DX: F11.23 Opioid dependence with withdrawal (principal); F10.230 Alcohol dependence with withdrawal, uncomplicated; F17.210 Nicotine dependence, cigarettes, uncomplicated; E87.6 Hypokalemia; E66.9 Obesity, unspecified; Z68.39 Body mass index [BMI] 39.0-39.9, adult; Z87.438 Personal history of other diseases of male genital organs
CPT/HCPCS: 36415; 80053; 81003; 81015; 82962; 85027; 86593; 93005; 93010; Q0162